=== PATIENT | female | born 1985 | race Caucasian/White ===

== ENCOUNTER 2019-09-27 09:36 | Emergency (ER) | payer OTHER, SELFPAY ==
[2019-09-27 09:53] VITALS: BP 134/95; PULSE 70; RESP 16; TEMP 36.6; O2SAT 99
--- NOTE | 2019-09-27 10:06 | ED.GENADULT ---
HPI - General Adult General Chief complaint: Dental/Oral Stated complaint: tooth pain Time Seen by Provider: 09/27/19 10:07 Source: patient Mode of arrival: ambulatory Limitations: no limitations History of Present Illness HPI narrative: 34-year-old female patient presents to the [facility] with complaints left lower tooth pain x5 days. Patient states she has had tooth infections before in the past. Patient denies any fevers that she is aware of. Patient denies any body aches or chills. Patient states she has been taking Tylenol and ibuprofen but continues to have worsening pain. Patient states she notes she has a known broken tooth to the back of the left lower oral cavity but is been broken for about 3 years and is never given her any problems until now. Patient states she is unable to get into her dentist at this time. Related Data Allergies Allergy/AdvReac Type Severity Reaction Status Date / Time Penicillins Allergy Anaphylaxis Verified 09/27/19 10:02 Review of Systems Review of Systems: Narrative: CONSTITUTIONAL: Denies fever, chills, or sweats. EYES: Denies visual changes, redness, or discharge. ENT: Denies rhinorrhea, congestion, sore throat, or otalgia. Positive left lower dental pain x5 days CARDIOVASCULAR: Denies chest pain, palpitations, or edema. RESPIRATORY: Denies cough or dyspnea. GASTROINTESTINAL: Denies abdominal pain, nausea, vomiting, or diarrhea. GENITOURINARY: Denies dysuria or hematuria. SKIN: Denies rash or itching. MUSCULOSKELETAL: Denies back pain, joint pain, or myalgia. NEUROLOGIC: Denies headache, numbness, or weakness. PSYCHIATRIC: Denies anxiety or depression. PMFSH Social History Social History Gender identity (if verbalized by the patient): Female Comments At the time of my signature I agree with nursing past medical history, surgical, social, and family history. There is no relevant family history pertinent to the presenting complaint. Exam Narrative: Exam Narrative: GENERAL: Well-appearing, well-nourished, and in no acute distress. HEAD: Normocephalic, atraumatic. EYES: PERRLA and EOMI. ENT: Nares clear, no rhinorrhea or epistaxis. Mucous membranes moist. Patient does have a broken back molar on the left lower oral cavity. Slight tenderness noted on palpation. No obvious abscess noted no discharge noted. NECK: Supple. No lymphadenopathy CHEST: Clear to auscultation. No respiratory distress. HEART: Regular rate and rhythm. No murmur heard. Normal peripheral pulses. ABDOMEN: Soft, nontender, nondistended, normal active bowel sounds. EXTREMITIES: Normal range of motion. No edema. SKIN: Warm, dry, no rash. NEURO: No focal deficits. Alert and oriented x3. Course Vital Signs Vital signs: Vital Signs Temperature 36.6 C 09/27/19 09:53 Pulse Rate 70 09/27/19 09:53 Respiratory Rate 16 09/27/19 09:53 Blood Pressure 134/95 H 09/27/19 09:53 Pulse Oximetry 99 09/27/19 09:53 Temperature 36.6 C 09/27/19 09:53 Pulse Rate 70 09/27/19 09:53 Respiratory Rate 16 09/27/19 09:53 Blood Pressure 134/95 H 09/27/19 09:53 Pulse Oximetry 99 09/27/19 09:53 Vital signs reviewed. The patient has been informed that they may have pre-hypertension or Hypertension based on a BP reading in the department. I recommend that the patient call the primary care provider listed on their discharge instructions or a physician of their choice this week to arrange follow up for further evaluation of possible pre-hypertension or Hypertension Medical Decision Making Differential Diagnosis Differential Diagnosis: Differential diagnosis: Dental caries, periodontal disease, avulsed tooth, tooth infections, mandibular infection, Roland's angiana, upper tooth infection, dry socket, gingivitis, acute necrotizing ulcerative gingivitis, sialolithiasis. Discussed with patient that the broken tooth could now have an infection that is causing t
== END 2019-09-27 10:18 | disposition home or self-care (01) ==
PROVIDERS: Emergency Provider Nurse Practitioner Family
DX: K08.89 Other specified disorders of teeth and supporting structures (principal); R03.0 Elevated blood-pressure reading, without diagnosis of hypertension; Z96.89 Presence of other specified functional implants; K31.84 Gastroparesis
CPT/HCPCS: 99203; G0463